=== PATIENT | female | born 1990 | race Two or more races ===

== ENCOUNTER 2017-03-21 02:28 | Emergency (ER) | payer MEDICAID ==
[~2017-03-21] VITALS: Ht 157.5 cm; Wt 45.0 kg
[2017-03-21] MEDS ORDERED: SODIUM CHLORIDE 0.9% 1,000ML IVBOLUS ONE (03:00)
[2017-03-21 03:20] LABS: PH, VENOUS 7.354 pH (7.320-7.420)
[2017-03-21 03:34] LABS: BLOOD UREA NITROGEN 19 mg/dL (7-18)
[2017-03-21 03:41] LABS: HEMATOCRIT 34.2 % (34.6-47.8); HEMOGLOBIN 11.4 g/dL (11.7-16.4); WHITE BLOOD COUNT 8.2 x10^3/uL (3.4-10)
[2017-03-21 04:00] VITALS: BP 115/74
== END 2017-03-21 04:40 | disposition home or self-care (01) ==
LOC: ED 03:11
DX: F10.129 Alcohol abuse with intoxication, unspecified (principal); E11.65 Type 2 diabetes mellitus with hyperglycemia; Z79.4 Long term (current) use of insulin
CPT/HCPCS: 36415; 80048; 80307; 82010; 82040; 82803; 82962; 85025; 96360; 99284; J7030